=== PATIENT | male | born 1965 | race American Indian/Alaskan Native ===

== ENCOUNTER 2017-11-04 19:29 | Emergency (ER) | payer SELFPAY ==
[2017-11-04] MEDS ORDERED: Lidocaine 1% 30 ML SDV INJECT ONE (19:41)
--- NOTE | 2017-11-04 20:03 | EDM.PDOC ---
ED HPI GENERAL MEDICAL PROBLEM - General Chief Complaint: Skin Complaint Stated Complaint: HOOK IN FINGER [id number] Time Seen by Provider: 11/04/17 19:59 Source of Information: Reports: Patient History Limitations: Reports: No Limitations - History of Present Illness INITIAL COMMENTS - FREE TEXT/NARRATIVE: fishhook in finger Right Hand Pain Score (Numeric/FACES): 5 - Related Data Allergies Allergy/AdvReac Type Severity Reaction Status Date / Time amoxicillin Allergy Fever Verified 11/04/17 19:35 Penicillins Allergy Fever Verified 11/04/17 19:35 Home Meds: Home Meds . [No Known Home Meds] 11/04/17 [History] Past Medical History HEENT History: Reports: None Cardiovascular History: Reports: None Respiratory History: Reports: None Gastrointestinal History: Reports: None Genitourinary History: Reports: None Musculoskeletal History: Reports: None Neurological History: Reports: None Psychiatric History: Reports: None Endocrine/Metabolic History: Reports: None Hematologic History: Reports: None Immunologic History: Reports: None Oncologic (Cancer) History: Reports: None Dermatologic History: Reports: None Social & Family History - Tobacco Use Smoking Status *Q: Current Every Day Smoker Years of Tobacco use: 3 Packs/Tins Daily: 1 - Caffeine Use Caffeine Use: Reports: Coffee - Recreational Drug Use Recreational Drug Use: No ED ROS GENERAL - Review of Systems Review Of Systems: ROS reveals no pertinent complaints other than HPI. ED EXAM, SKIN/RASH Exam: See Below Exam Limited By: No Limitations General Appearance: Alert, WD/WN, No Apparent Distress Ears: Hearing Grossly Normal Throat/Mouth: Normal Voice, No Airway Compromise Head: Atraumatic Neck: Non-Tender, Full Range of Motion Respiratory/Chest: No Respiratory Distress Cardiovascular: Regular Rate, Rhythm GI/Abdominal: Soft, Non-Tender Extremities: Other (right index fishhook @ tip, NV wnl) Neurological: Alert, Normal Cognition, Normal Gait, No Motor/Sensory Deficits Psychiatric: Normal Affect, Normal Mood Skin: Warm, Dry, Normal Color Location, Skin: Upper Extremity, Right Lymphatic: No Adenopathy ED SKIN PROCEDURES - Additional/Other Procedure(s) Other (Free Text) Procedure(s): 1) area cleansed 2) lido plain local 3) spfl incision #11 4) removed without problem 5) bandaid Course - Vital Signs Last Recorded V/S: Last Vital Signs Temp 36.4 C 11/04/17 19:32 Pulse 65 11/04/17 19:32 Resp 18 11/04/17 19:32 BP 141/88 H 11/04/17 19:32 Pulse Ox 99 11/04/17 19:32 - Orders/Labs/Meds Meds: Medications Discontinued Medications Generic Name Dose Route Start Last Admin Trade Name Leonardo PRN Reason Stop Dose Admin Lidocaine HCl 30 ml 11/04/17 19:41 Xylocaine-Mpf 1% INJECT 11/04/17 19:42 ONETIME ONE Departure - Departure Time of Disposition: 20:01 Disposition: Home, Self-Care 01 Condition: Good Clinical Impression: [place] injury to finger Qualifiers: Encounter type: initial encounter Laterality: right Qualified Code(s): S69.91XA - Unspecified injury of right wrist, hand and finger(s), initial encounter - Discharge Information *PRESCRIPTION DRUG MONITORING PROGRAM REVIEWED*: No *COPY OF PRESCRIPTION DRUG MONITORING REPORT IN PATIENT HENRY: No Instructions: Puncture Wound, [id number]-[id number]-Temt Additional Instructions: 1) keep wound clean dry covered 2) wound check if looks infected
== END 2017-11-04 20:08 | disposition home or self-care (01) ==
LOC: DL.ED 19:29
DX: S60.450A Superficial foreign body of right index finger, initial encounter (principal); F17.210 Nicotine dependence, cigarettes, uncomplicated; W45.8XXA Other foreign body or object entering through skin, initial encounter; Z88.0 Allergy status to penicillin; Z88.1 Allergy status to other antibiotic agents
CPT/HCPCS: 10120; 99283